=== PATIENT | male | born 1985 | race Caucasian/White ===

== ENCOUNTER 2017-10-21 01:33 | Emergency (ER) | payer SELFPAY ==
[2017-10-21 01:47] VITALS: BP 122/78; PULSE 92; RESP 16; TEMP 98.3; O2SAT 98
[2017-10-21] MEDS ORDERED: Oxycodone/Acetaminophen 5/325 mg Tab PO STA (02:52)
[2017-10-21] MEDS ORDERED: Oxycodone/Acetaminophen 5/325 mg Tab ONE (03:22)
--- NOTE | 2017-10-21 04:06 | ED PDOC ---
HPI: General Adult Time Seen by Provider: 10/21/17 01:58 Chief Complaint (Nursing): Medical Clearance Chief Complaint (Provider): Medical Clearance History Per: Patient, EMS History/Exam Limitations: no limitations Onset/Duration Of Symptoms: Hrs Current Symptoms Are (Timing): Still Present Additional Complaint(s): Daina Jorgensen is a 31 year old male with a past medical history of chronic back pain and Lupus who was brought to the ER in custody of the Police department, for medical clearance prior to incarceration. Patient states that his only complaint is chronic back pain and would like something for the pain. He reports that he goes to pain management in [place] and gets spinal injections. Patient denies any new symptoms, weakness or numbness. He also denies any suicidal or homicidal ideation. PMD: none provided Past Medical History Reviewed: Historical Data, Nursing Documentation, Vital Signs Vital Signs: Last Vital Signs Temp 98.3 F 10/21/17 01:43 Pulse 92 H 10/21/17 01:43 Resp 16 10/21/17 01:43 BP 122/78 10/21/17 01:43 Pulse Ox 98 10/21/17 04:12 - Medical History PMH: Chronic Pain Denies: Chronic Kidney Disease Other PMH: Lupus - Surgical History Surgical History: No Surg Hx - Family History Family History: States: Unknown Family Hx - Allergies Allergies/Adverse Reactions: Allergies Allergy/AdvReac Type Severity Reaction Status Date / Time No Known Allergies Allergy Verified 10/21/17 02:52 Review of Systems ROS Statement: Except As Marked, All Systems Reviewed And Found Negative Constitutional: Negative for: Weakness Musculoskeletal: Positive for: Back Pain Neurological: Negative for: Weakness, Numbness Psych: Negative for: Suicidal ideation, Other (homicidal ideation) Physical Exam - Reviewed Nursing Documentation Reviewed: Yes Vital Signs Reviewed: Yes - Physical Exam Appears: Positive for: Non-toxic, No Acute Distress Head Exam: Positive for: ATRAUMATIC, NORMAL INSPECTION, NORMOCEPHALIC Skin: Positive for: Normal Color, Warm, Dry Eye Exam: Positive for: EOMI, Normal appearance, PERRL Neck: Positive for: Normal, Painless ROM, Supple Cardiovascular/Chest: Positive for: Regular Rate, Rhythm Respiratory: Positive for: Normal Breath Sounds. Negative for: Respiratory Distress Back: Positive for: Other (lower back tenderness, right paraspinal tenderness) Extremity: Positive for: Normal ROM. Negative for: Deformity, Swelling Neurologic/Psych: Positive for: Alert, Oriented. Negative for: Motor/Sensory Deficits - ECG O2 Sat by Pulse Oximetry: 98 (RA) Pulse Ox Interpretation: Normal Medical Decision Making Medical Decision Making: Time: 2:52 Impression: Chronic Back Pain Plan: --Motrin 600 mg PO --Percocet 1 tab PO Patient offers no new medical complaints at this time. Patient is medically cleared. Scribe Attestation: Documented by Celestina Khalil, acting as a scribe for Charmaine Oneil MD. Provider Scribe Attestation: All medical record entries made by the Scribe were at my direction and personally dictated by me. I have reviewed the chart and agree that the record accurately reflects my personal performance of the history, physical exam, medical decision making, and the department course for this patient. I have also personally directed, reviewed, and agree with the discharge instructions and disposition. Disposition - Clinical Impression Clinical Impression: Back pain, chronic - Patient ED Disposition Is Patient to be Admitted: No Counseled Patient/Family Regarding: Studies Performed, Diagnosis - Disposition Referrals: [facility] [Outside] Disposition: Routine/Home Disposition Time: 04:00 Condition: GOOD Additional Instructions: Follow up with your pain specialist in 2-3 days. Patient is medically and psychiatrically clear for incarceration. Instructions: Chronic Pain (DC)
== END 2017-10-21 04:25 ==
LOC: H.ER 01:33
DX: G89.29 Other chronic pain (principal); M32.9 Systemic lupus erythematosus, unspecified